=== PATIENT | female | born 1955 | race Caucasian/White ===

== ENCOUNTER 2018-02-10 07:32 | Day surgery (SDC) | payer MEDICARE ==
[~2018-02-10] VITALS: Ht 167.6 cm; Wt 71.9 kg
[2018-02-10] MEDS ORDERED: PREG200 PO (08:08)
[2018-02-10] MEDS ORDERED: OXYC5 (08:08)
== END 2018-02-10 09:23 | disposition home or self-care (01) ==
LOC: ORSCSDS 07:32
PROVIDERS: Ophthalmology
PROC: 08RK3JZ Replacement of Left Lens with Synthetic Substitute, Percutaneous Approach (ICD-10-PCS; principal; 2018-02-10 09:00)
DX: H25.12 Age-related nuclear cataract, left eye (principal); E03.9 Hypothyroidism, unspecified; Z79.899 Other long term (current) drug therapy; F17.210 Nicotine dependence, cigarettes, uncomplicated
CPT/HCPCS: J2250; J3010; J3301; J7040; V2632

== ENCOUNTER → 2018-05-24 | Outpatient (CLI) | payer MEDICARE ==
[~2018-05-24] MED LIST: OXYC5; PREG200 PO
== END | disposition home or self-care (01) ==
LOC: PLD 08:05 → LAB SHORT 08:05
DX: D48.5 Neoplasm of uncertain behavior of skin (principal)
CPT/HCPCS: 88305